=== PATIENT | male | born 1970 | race Caucasian/White ===

== ENCOUNTER 2023-12-16 12:43 | Outpatient (CLI) | payer OTHER ==
--- NOTE | 2023-12-16 22:25 | CT Report ---
PROCEDURE: Lung Cancer Screen INDICATIONS: SMOKER TECHNIQUE: A CT scan of the chest was performed. Intravenous contrast media was not administered. Images were re corded and evaluated at appropriate window settings. Reformats: axial MIP of the chest, coronal and s agittal. For radiation dose reduction, the following was used: automated exposure control, adjustment of mA and/or kV according to patient size. COMPARISON: None. FINDINGS: Image quality: Excellent. Prior cancer history: Unsure. Lungs and pleura: No pleural effusions. No pneumothorax. No suspicious pulmonary nodules which requi re follow up. Mediastinum: Heart size is normal. No pericardial effusion. No large vessel abnormality. No mediastin al adenopathy by size criteria. Three vessel coronary artery calcifications. Chest wall and lower neck: Thyroid is unremarkable. No axillary or supraclavicular adenopathy by size . Bones: No aggressive osseous abnormality. Upper Abdomen: Unremarkable. IMPRESSION: No suspicious pulmonary nodules. No acute cardiopulmonary abnormalities. Lung RAD: 1 - Negative. Recommendation: Continue annual screening in 12 Months with LDCT Non-Lung Significant Findings: Coronary Arterial Calcification - Moderate or Severe. Consider cardiol ogy referral. Reviewed by: Stone Fine MD on 12/16/2023 10:24 PM PST Approved by: Stone Fine MD on 12/16/2023 10:24 PM PST Station ID: [id number]
== END 2023-12-16 12:44 | disposition home or self-care (01) ==
LOC: DI 12:43
PROVIDERS: ATTEND Student in an Organized Health Care Education/Training Program
DX: Z12.2 Encounter for screening for malignant neoplasm of respiratory organs (principal); I25.10 Atherosclerotic heart disease of native coronary artery without angina pectoris; F17.210 Nicotine dependence, cigarettes, uncomplicated

== ENCOUNTER 2024-03-09 10:08 | Outpatient (CLI) | payer OTHER ==
--- NOTE | 2024-03-09 12:54 | XRAY Report ---
PROCEDURE: Shoulder 2+V LT INDICATIONS: LEFT SHOULDER PAIN TECHNIQUE: 3 views of the shoulder were acquired. COMPARISON: None. FINDINGS: Bones: Mild acromioclavicular and glenohumeral degenerative changes. No acute displaced fracture. Gle nohumeral alignment appears maintained. Soft tissues: No suspicious calcifications. IMPRESSION: Mild degenerative changes. No acute radiographic abnormality. If there is high concern for further de rangement, consider MRI evaluation. Reviewed by: Bran Mancera MD on 03/09/2024 12:53 PM PDT Approved by: Bran Mancera MD on 03/09/2024 12:53 PM PDT Station ID: [id number]
== END 2024-03-09 10:09 | disposition home or self-care (01) ==
LOC: DI 10:08
PROVIDERS: ATTEND Student in an Organized Health Care Education/Training Program
DX: M19.012 Primary osteoarthritis, left shoulder (principal)